=== PATIENT | male | born 1960 | race Caucasian/White ===

== ENCOUNTER → 2021-02-12 | Outpatient (CLI) | payer BC ==
[2021-02-12 17:06] LABS: HEMOGLOBIN 16.4 gm/dl (14.0-17.5); RED BLOOD COUNT 5.43 M/UL (4.20-5.50); WHITE BLOOD COUNT 6.6 K/UL (4.5-11.0)
[2021-02-12 17:51] LABS: BUN/CREATININE RATIO 11 (0-10)
== END ==
LOC: LAB 15:34
PROVIDERS: Physician Assistant
DX: R05 Cough (principal); R50.9 Fever, unspecified; R10.9 Unspecified abdominal pain
CPT/HCPCS: 36415; 71046; 80048; 80076; 82150; 83690; 85025

== ENCOUNTER → 2021-02-13 | Outpatient (CLI) | payer BC | LOC: CT 14:54 | DX: R10.9 Unspecified abdominal pain (principal); R50.9 Fever, unspecified; R11.0 Nausea; K76.0 Fatty (change of) liver, not elsewhere classified; K80.20 Calculus of gallbladder without cholecystitis without obstruction; N40.0 Benign prostatic hyperplasia without lower urinary tract symptoms | CPT/HCPCS: Q9967 ==

== ENCOUNTER → 2021-03-17 | Outpatient (CLI) | payer BC | LOC: MRI 07:59 | DX: H49.00 Third [oculomotor] nerve palsy, unspecified eye (principal) | CPT/HCPCS: 36415; 70553; 82565; 84520; 85652; 86140; A9577 ==